=== PATIENT | female | born 1990 | race Asian ===

== ENCOUNTER 2022-12-21 10:48 | Outpatient (CLI) | payer BC, SELFPAY | END 2022-12-21 10:49 | disposition home or self-care (01) | LOC: NFLDREF 12-24 05:29 | PROVIDERS: PCP Family Medicine; Visit Provider Family Medicine | DX: Z01.419 Encounter for gynecological examination (general) (routine) without abnormal findings (principal); Z13.1 Encounter for screening for diabetes mellitus; Z13.6 Encounter for screening for cardiovascular disorders; Z12.4 Encounter for screening for malignant neoplasm of cervix | CPT/HCPCS: 80061; 82947 ==